=== PATIENT | male | born 1975 | race Caucasian/White ===

== ENCOUNTER 2024-11-20 23:15 | Outpatient (CLI) | payer OTHER, SELFPAY | END 2024-11-20 23:16 | disposition home or self-care (01) | LOC: AMB 11-24 14:13 | PROVIDERS: Visit Provider Emergency Medicine | DX: S09.93XA Unspecified injury of face, initial encounter (principal); Y04.0XXA Assault by unarmed brawl or fight, initial encounter; Y92.511 Restaurant or cafe as the place of occurrence of the external cause | CPT/HCPCS: A0425; A0429 ==

== ENCOUNTER 2024-11-20 23:40 | Emergency (ER) | payer OTHER, SELFPAY ==
--- OUTSIDE RECORDS SUMMARY | 2024-11-20 23:42 | XMS_ITS | Encounter Summary ---
Author Organization [facility] Address [address] [place] [address] Care Team Providers Care Lard Tub Washer Name Role Phone Akira Dietz MD Primary Care Provider [phone] Encounter Details Date Type Department Care Team (Late st Contact Info) Description 02/11/2017 Correspondence [facility] Neurosurgery/Ortho Spine [address] [facility] [place] [address] Bharath Dumont MD FMLA Social History Tobacco Use Types Packs/Day Years Used Date Smoking Tobacco: Never Smokeless Tobacco: Never Sex and Gender Information Value Date Recorded Sex Assigned at Not on file Legal Sex Male 4:45 AM CDT Gender Identity Not on file Sexual Orientation Not on file documented as of this encounter Plan of Treatment Not on file documented as of this encounter Visit Diagnoses Not on filedocumented in this encounter Care Teams Lard Tub Washer Relationship Specialty Start Date End Date Akira Dietz MD [address] [place] [address] [place] [address] PCP - General Family Practice 02/01/17 documented as of this encounter
--- OUTSIDE RECORDS SUMMARY | 2024-11-20 23:42 | XMS_ITS | Clinical Summary ---
Author Organization [facility] Address [address] [place] [address] Care Team Providers Care Student Development Advisor Name Role Phone Akira Dietz Primary Care Provider [phone] Allergies Active Allergy Reactions Criticality Noted Date Comments Clindamycin Anaphylaxis High 05/24/2016 Medications No known medications Active Problems Problem Noted Date Diagnosed Date Hemothorax on left 05/24/2016 Social History Tobacco Use Types Packs/Day Years Used Date Smoking Tobacco: Never Smokeless Tobacco: Never Alcohol Use Standard Drinks/Week Comments Yes 0 (1 standard drink = 0.6 oz pur e alcohol) occasionally Sex and Gender Information Value Date Recorded Sex Assigned at Not on file Legal Sex Male 4:51 PM FOREST MANAGER Gender Identity Not on file Sexual Orientation Not on file Last Filed Vital Signs Vital Sign Reading Time Taken Comments Blood Pressure 123/79 02/01/2017 5:27 PM CDT Pulse 72 02/01/2017 5:00 PM CDT Temperature 36.8 C (98.3 F) 02/01/2017 5:00 PM CDT Respiratory Rate 16 02/01/2017 5:00 PM CDT Oxygen Saturation 97% 02/01/2017 6:00 PM CDT Inhaled Oxygen Concentration - - Weight 97.5 kg (215 lb) 02/01/2017 5:00 PM CDT Height 185.4 cm (6' 1) 02/01/2017 5:00 PM CDT Body Mass Index 28.37 02/01/2017 5:00 PM CDT Plan of Treatment Not on file Advance Directives For more information, please contact: [phone] * Full Code (Latest Code Status on File) Date Activated Date Inactivated Comments 05/25/2016 1:16 AM 05/30/2016 1:17 PM Care Teams Student Development Advisor Relationship Specialty Start Date End Date Akira Dietz PCP - General Family Practice 05/24/16
--- OUTSIDE RECORDS SUMMARY | 2024-11-20 23:42 | XMS_ITS | Encounter Summary ---
Author Organization [facility] Address [address], [place] [address] Care Team Providers Care Surface Water Manager Name Role Phone Akira Dietz MD Primary Care Provider [phone] Encounter Details Date Type Department Care Team (Latest Contact Info) Description 02/05/2017 Correspondence None No Primary/Referring, Phy MEDICAL FACTS Social History Tobacco Use Types Packs/Day Years [...] on filedocumented in this encounter Care Teams Surface Water Manager Relationship Specialty Start Date End Date Akira Dietz MD [address] [facility] [place] [address] PCP - General Family Practice 02/01/17 documented as of this encounter
--- OUTSIDE RECORDS SUMMARY | 2024-11-20 23:42 | XMS_ITS | Clinical Summary ---
Author Organization [facility] Address [address] [place] [address] Care Team Providers Care Distribution Clerk Name Role Phone Akira Dietz MD Primary Care Provider Allergies Active Allergy Reactions Criticality Noted Date Comments Clindamycin GI Upset,Throat Swelling/Closing,Anaphylaxis High 01/22/2015 Medications No known medications Active Problems Problem Noted Date Diagnosed Date Encounter for screening colonoscopy 12/25/2023 Hemothorax on left 06/06/2016 Fracture of multiple ribs of left side 7 Immunizations Immunization Administration Dates Next Due COVID-19 vaccine (Digital Caddies 30mcg/0.3mL) [place] NENA Wills 08/21/2020,07/31/2020 Influenza, IIV3 (Age >=3 years) 04/02/2016 Influenza, IIV4 02/03/2017 Tdap 12/15/2023,06/19/2011 Family History Medical History Relation Name Comments Good Health Daughter Heart attack Father Good Health Mother Cancer-colon Paternal Grandmother Diabetes type II Paternal Grandmother Good Health Son Relation Name Status Comments Daughter Alive Father Mother Alive Paternal Grandmother Son Alive Social History Tobacco Use Types Packs/Day Years Used Date Smoking Tobacco: Never Smokeless Tobacco: Never Tobacco Cessation:Counseling Given: Yes Alcohol Use Standard Drinks/Week Comments Yes 0 (1 standard drink = 0.6 oz pur e alcohol) rare PHQ-2 Answer Date Recorded PHQ-2 TOTAL SCORE 0 12/15/2023 Social Connections Answer Date Recorded Do you often feel lonely or isolated from those around you? 0 01/25/2024 Financial Resource Strain Answer Date R ecorded Difficulty of Paying Living Expenses 3 01/25/2024 Difficulty of Paying Living Expenses Not on file 01/25/2024 Food Insecurity Answer Date Recorded Do you worry your food will run out before you are able to buy more? 1 01/25/2024 Transportation Needs Answer Date Record ed Does lack of transportation keep you from medica l appointments? 1 01/25/2024 Does lack of transportation keep you from work, meetings or getting things that you need? 1 01/25/2024 Housing Stability Answer Date Recorded What is your housing situation today? 1 01/25/2024 Utilities Answer Date Recorded Do you have trouble paying f or utilities (for example, heat, electricity, water, phone)? 1 01/25/2024 Sex and Gender Information Value Date Recorded Sex Assigned at Not on file Legal Sex Male 5:23 AM DIRECT MAIL MARKETER Gender Identity Not on file Sexual Orientation Not on file Obstetrics History Last Filed Vital Signs Vital Sign Reading Time Taken Comments Blood Pressure 102/68 01/25/2024 2:35 PM CDT Pulse 68 01/25/2024 2:35 PM CDT Temperature 36.8 C (98.3 F) 12/25/2023 8:39 AM CDT Respiratory Rate 16 12/25/2023 10:00 AM CDT Oxygen Saturation 95% 12/25/2023 10:00 AM CDT Inhaled Oxygen Concentration - - Weight 98.4 kg (217 lb) 01/25/2024 2:35 PM CDT Height 180.3 cm (5' 11) 01/25/2024 2:35 PM CDT Body Mass Index 30.27 01/25/2024 2:35 PM CDT Plan of Treatment Health Maintenance Due Date Last Done Comments HIV for age 15-65 1990 Hepatitis B series for 19+ (1 of 3 - 19+ 3-dose series) 1994 COVID-19 vaccine series (2023- season) 2023 08/21/2020, 07/31/2020 Depression screening for age 12+ 12/16/2024 12/17/2023, 12/15/2023, 12/15/2023 Influenza Vaccine (#1) 2024 02/03/2017, 2015 BMI (ht and wt on same day) for age 18+ 01/24/2025 01/25/2024, 12/15/2023, 05/15/2021, Additional history exists Lipids for age 45-75 12/14/2028 12/15/2023 Tetanus booster 12/14/2033 12/15/2023, 03/0 04/2011 (Completed outside of [facility]), 06/19/2011 Colonoscopy through age 75 12/24/2033 12/25/2023 Hepatitis C screening for age 18-79 Completed 12/15/2023 Pneumococcal series for age 6-49 Aged Out No longer eligible based on patient's age to complete this topic Procedures Procedure Name Priority Date/Time Associated Diagnosis Comments COLONOSCOPY 12/25/2023 9:00 AM CDT ANTI HCV Routine 12/15/2023 2:42 PM CDT Need for hepatitis C screening test LIPID PANEL W REFLEX MEASURED LDL Routine 12/15/2023 2:42 PM CDT Well adult exam from Last 3 Months or Most Recently Relevant to Health Maintenance Results * COLONOSCOPY (12/25/2023 9:00 AM CDT) 12/25/2023 9:00 AM CDT Narrative Transcriptions Federica Howell DO - 12/25/2023 9:51 AM CDT Patient Name: Mik Lindo Procedure Date: 12/25/2023 Gender: Male Date of : 1975 Admit Type: Ambulatory Procedure: Colonoscopy Proceduralist: Federica Howell MD Referring MD: Akira Dietz MD Indications/Pre-Op Diagnosis: Screening for colorectal malignantneoplasm Medications: Monitored Anesthesia Care Procedure Description: The patient had risks, benefits and alternatives explained to andgave informed consent. The patient had a stable cardiopulmonary status and judged an adequate candidate for conscious sedation. The endoscope [id number] was passed through the anus andadvanced to the terminal ileum, with identification of the appendiceal orifice and IC valve. The colonoscopy was performed without difficulty. The patient tolerated the procedure well. The quality of the bowel preparation was excellent. The terminal ileum, ileocecal valve, appendiceal orifice, and rectum were photographed. Complications: No immediate complications. Estimated Blood Loss & Specimen: Estimated blood loss: none. Specimen collected - None Findings: The perianal and digital rectal examinations were normal. Pertinent negatives include normal sphincter tone, no palpable rectal lesions, normal prostate (size, shape, and consistency) and normal stool Hemoccult. The colon (entire examined portion) appeared normal. The exam was otherwise without abnormality on direct and retroflexion views. Impressions/Post-Op Diagnosis: - The entire examined colon is normal. - The examination was otherwise normal on direct and retroflexionviews. - No specimens collected. Recommendation: - Patient has a contact number available for emergencies. The signsand symptoms of potential delayed complications were discussed with the patient. Return to normal activities tomorrow. Written discharge instructions were provided to the patient. - Discharge patient to home (ambulatory). - Resume previous diet. - Continue present medications. - Repeat colonoscopy in 10 years for screening purposes. Federica Howell MD 12/25/2023 9:51:22 AM This report has been signed electronically. Note Initiated On: 12/25/2023 9:00 AM us Federica Howell DO PROCEDURE ORD Final Res ult * (ABNORMAL) LIPID PANEL W REFLEX MEASURED LDL (12/15/2023 2:42 PM CDT) CHOLESTEROL,TOTAL 209(H) 100 - 199 mg/dL 12/15/2023 3:33 PM CDT [facility] Comment: Cholesterol, Total Reference Ranges Desirable <200 mg/dL Borderline 200-239 mg/dL High >=240 mg/dL TRIGLYCERIDES 155(H) <150 mg/dL 12/15/2023 3:33 PM CDT [facility] HDL CHOLESTEROL 70 >40 mg/dL 3:33 PM CDT [facility] NON-HDL CHOLESTEROL 139 <145 mg/dl 12/15/2023 3:33 PM CDT [facility] CHOL/HDL RATIO 2.99 <4.50 12/15/2023 3:33 PM CDT [facility] LDL CHOLESTEROL 108 <=130 mg/dL 12/15/2023 3:33 PM CDT [facility] VLDL CHOLESTEROL 31(H) <=30 mg/dL 12/15/2023 3:33 PM CDT [facility] PROVIDER ORDERED STATUS RANDOM 12/15/2023 3:33 PM CDT [facility] Blood BLOOD SPECIMEN / Unknown Venipuncture / Unknown 12/15/2023 2:42 PM CDT 12/15/2023 2:42 PM CDT Akira Dietz MD CHEMISTRY Final R esult [facility] [address] [place] [address] * ANTI HCV (12/15/2023 2:42 PM CDT) HEPATITIS C ANTIBODY Non-Reacti ve Non-React juliette 12/16/2023 2:28 PM CDT [facility] Comment:Please note, per www .CDC.gov: If a patient is known to be at high risk of HCV infection, or is symptomatic, and the physician's suspicion of HCV infection is high, HCV RNA testing is often employed and is of diagnostic value, even after an initial negative anti-HCV test result. Blood BLOOD SPECIMEN / Unknown Venipuncture / Unknown 12/15/2023 2:42 PM CDT 12/15/2023 2:42 PM CDT us Akira Dietz MD SEND OUTS Final R esult [facility] [address] [place] [address], [place] from Last 3 Months or Most Recently Relevant to Health Maintenance Insurance [facility] Advance Directives * Full Code (Latest Code Status on File) Date Activated Date Inactivated Comments 12/25/2023 8:36 AM 12/25/2023 12:14 PM Question Answer Comments Code Status Discussion: Discussed Care Teams Distribution Clerk Relationship Specialty Start Date End Date Akira Dietz MD PCP - General 03/13/08
--- OUTSIDE RECORDS SUMMARY | 2024-11-20 23:42 | XMS_ITS | Encounter Summary ---
Author Organization [facility] Address [address] [address] Care Team Providers Care Asphalt Roller Person Name Role Phone Akira Dietz MD Primary Care Provider [phone] Encounter Details Date Type Department Care Team (Late st Contact Info) Description 02/02/2017 Correspondence [facility] Radiology [address] [place] [address] Radiology, Provider MRI SAFETY SHEET AND COMPATIBILITY FORM Social History Tobacco Use Types Packs/Day Years [...] on filedocumented in this encounter Care Teams Asphalt Roller Person Relationship Specialty Start Date End Date Akira Dietz MD [address] [facility] [place] [address] PCP - General Family Practice 02/01/17 documented as of this encounter
--- OUTSIDE RECORDS SUMMARY | 2024-11-20 23:42 | XMS_ITS | Encounter Summary ---
Author Organization [facility] Address [address], [place] [address] Care Team Providers Care City Solicitor Name Role Phone Akira Dietz MD Primary Care Provider [phone] Encounter Details Date Type Department Care Team (Late st Contact Info) Description 02/01/2017 Correspondence [facility] Radiology [address] [place] [address] Radiology, Provider MRI SAFETY SHEET AND COMPATIBILITY FORM Social History Tobacco Use Types Packs/Day Years Used Date Smoking Tobacco: Never Assessed Sex and Gender Information Value Date Recorded Sex Assigned at Not on file Legal Sex Male 4:45 AM CDT Gender Identity Not on file Sexual Orientation Not on file documented as of this encounter Plan of Treatment Not on file documented as of this encounter Visit Diagnoses Not on filedocumented in this encounter Care Teams City Solicitor Relationship Specialty Start Date End Date Akira Dietz MD [address] [facility] [place] [address] PCP - General Family Practice 02/01/17 documented as of this encounter
--- OUTSIDE RECORDS SUMMARY | 2024-11-20 23:42 | XMS_ITS | Encounter Summary ---
[facility] Address [address] [address] Care Team Providers Care Van Driver Helper Name Role Phone Akira Dietz MD Primary Care Provider Encounter Details Date Type Department Care Team (Late st Contact Info) Description 02/18/2017 Correspondence External to External, [place] [address] PREFERRED ONE Social History Tobacco Use Types Packs/Day Years [...] on filedocumented in this encounter Care Teams Van Driver Helper Relationship Specialty Start Date End Date Akira Dietz MD [address] [facility] [place] [address] PCP - General Family Practice 02/01/17 documented as of this encounter
--- OUTSIDE RECORDS SUMMARY | 2024-11-20 23:43 | XMS_ITS | Encounter Summary ---
Author Organization [facility] Address [address], [place] [address] Care Team Providers Care Director Maternal Child Name Role Phone Akira Dietz MD Primary Care Provider [phone] Encounter Details Date Type Department Care Team (Late st Contact Info) Description 04/02/2017 Correspondence [facility] Neurosurgery/Ortho Spine [address] [facility]. [place], [place] [id number] Jaret Guerrero PA-C [address] [place] [address] WORKABILITY REPORT Social History Tobacco Use Types Packs/Day Years Used Date Smoking Tobacco: Never Smokeless Tobacco: Never Alcohol Use Standard Drinks/Week Comments No 0 (1 standard drink = 0.6 oz pur e alcohol) Sex and Gender Information Value Date Recorded Sex Assigned at Not on file Legal Sex Male 4:45 AM CDT Gender Identity Not on file Sexual Orientation Not on file documented as of this encounter Plan of Treatment Not on file documented as of this encounter Visit Diagnoses Not on filedocumented in this encounter Care Teams Director Maternal Child Relationship Specialty Start Date End Date Akira Dietz MD [address] [facility] [place] [address] PCP - General Family Practice 02/01/17 documented as of this encounter
--- OUTSIDE RECORDS SUMMARY | 2024-11-20 23:43 | XMS_ITS | Clinical Summary ---
Author Organization [facility] Address [address], [place] [address] Care Team Providers Care Taxi Driver Name Role Phone Akira Dietz MD Primary Care Provider Source Comments You are receiving this document as you are listed as the primary care provider,follow-up provider, or the patient has been referred to you for consultation.This is in compliance with the Medicare and[facility] EHR Incentive Program,which states Providers who transition their patient to another setting of careor provider of care or refers their patient to another provider of care shouldprovide summary care record for each transition of care or referral. Bluepay Allergies Active Allergy Reactions Criticality Noted Date Comments Clindamycin Anaphylaxis High 02/01/2017 Medications calcium carbonate-vitam in D (OS-MICHAEL 500 WITH D) 500-200 MG-UNIT per tablet Take 1 Tab by mouth two times a day with meals. 100 Tab 02/04/20 17 Active Additional Information Patient not taking.Reported on 08/27/2017 cholecalciferol (VITAMIND3) 400 UNITS tabletIndicatio ns:poor bone quality Take 2.5 Tabs by mouth daily. Indications: poor bone quality 125 Tab 02/05/20 17 Active Additional Information Patient not taking.Reported on 08/27/2017 acetaminophen (TYLENOL) 500 MG tablet Take 500-1,000 mg by mouth every 4 hours as needed for Pain. Maximum acetaminophen dose is 4000 mg in 24 hours Active gabapentin (NEURONTIN) 300 MG capsuleIndicati ons:Fracture of pedicle of C5 vertebra (HRC),Open displaced fracture of sixth cervical vertebra, unspecified fracture morphology, sequela Take 1 Cap by mouth three times a day. 90 Cap 2 02/17/20 17 Active Additional Information Patient not taking.Reported on 04/02/2017 methocarbamol (ROBAXIN) 500 MG tabletIndicatio ns:Musculoskele clarence Pain Take 1 Tab by mouth 4 times daily as needed. Indications: Musculoskeletal Pain 60 Tab 02/26/20 17 Active Additional Information Patient not taking.Reported on 04/02/2017 oxyCODONE (ROXICODONE) 5 MG immediate release tabletIndicatio ns:Fracture of pedicle of C5 vertebra (HRC),Open displaced fracture of sixth cervical vertebra, unspecified fracture morphology, sequela Take 1-2 Tabs by mouth every 4 hours as needed for Pain. 120 Tab 02/26/20 17 Active Additional Information Patient not taking.Reported on 04/02/2017 polyethylene glycol (MIRALAX) packetIndicatio ns:Constipation Take 1 Packet by mouth daily. Indications: Constipation 21 Each 1 02/26/20 17 Active Additional Information Patient not taking.Reported on 04/02/2017 sennosides-docu sate sodium (SENNA-S,SENNA PLUS) 8.6-50 MG per tablet Take 1 Tab by mouth two times daily as needed for Constipation. 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 Fracture of pedicle of C5 vertebra 02/18/2017 Overview (02/18/2017): Added automatically from request for surgery [id number] Open displaced fracture of sixth cervical verteb ra 02/18/2017 Overview (02/18/2017): Added automatically from request for surgery [id number] Immunizations Immunization Administration Dates Next Due Influenza IIV4 (Quadrivalent) 0.5mL (47600) 01/18 Social History Tobacco Use Types Packs/Day Years [...] Sign Reading Time Taken Comments Blood Pressure 131/81 08/27/2017 12:08 PM CDT Pulse 68 08/27/2017 12:08 PM CDT Temperature 36.5 C (97.7 F) 08/27/2017 12:08 PM CDT Respiratory Rate 16 08/27/2017 12:08 PM CDT Oxygen Saturation 96% 02/25/2017 6:21 AM FISCAL CLERK Inhaled Oxygen Concentration - - Weight 99.8 kg (220 lb) 08/27/2017 12:08 PM CDT Height 185.4 cm (6' 1) 08/27/2017 12:08 PM CDT Body Mass Index 29.03 08/27/2017 12:08 PM CDT Plan of Treatment Health Maintenance Due Date Last Done Comments Colon Cancer Screening Plan Due 1975 Hep C Screening (Preventive Services) 1975 IPV (Polio) Vaccine (2 of 3 - 4-dose series) 08/02/1980 07/05/1980 HIV Screening (Preventive Services) 1991 Adult Preventive Visit 1993 HepB Vaccine (1) 1994 Cholesterol 2010 DTaP/Tdap/Td Vaccine (4 - Tdap) 07/12/2021 07/13/2011, 06/19/2011, 07/05/1980 COVID-19 Vaccine (3 - season) 2023 08/21/2020, 07/31/2020 Influenza Vaccine (#1) 2024 7, 04/02/2016, 02/10/2013, Additional history exists Zoster/Shingles Vaccine (1 of 2) 2025 HepA Vaccine Aged Out No longer eligi ble based on patient's age to complete this topic Hib Vaccine Aged Out No longer eligi ble based on patient's age to complete this topic MCV4 Vaccine Aged Out No longer eligi ble based on patient's age to complete this topic Meningococcal B Vaccine Aged Out No l onger eligible based on patient's age to complete this topic Pneumococcal Vaccine Aged Out No long er eligible based on patient's age to complete this topic Medical Devices Implanted Type Area Office Lead Device Identifier Shelf Expiration Date Model / Serial / Lot Bone Putty Ifactor 1.0cc - [id number] Implanted:Qty : 1 on 02/24/2017 by Bharath Dumont MD at [facility] DEVICE N/A: SPINE CERVICAL ANTERIOR [employer] 09/18/2019 [id number] / / [id number] Spcr Cervical [id number] - [id number] Implanted:Qty : 1 on 02/24/2017 by Bharath Dumont MD at [facility] DEVICE N/A: SPINE CERVICAL ANTERIOR K2M 02/06/2021 [id number] / / [id number] Spcr Cervical [id number] - [id number] Implanted:Qty : 1 on 02/24/2017 by Bharath Dumont MD at [facility] DEVICE N/A: SPINE CERVICAL ANTERIOR K2M 12/26/2021 [id number] / / [id number] Scr Fa 4.0x18 - [id number] Implanted:Qty : 3 on 02/24/2017 by Bharath Dumont MD at [facility] DEVICE N/A: SPINE CERVICAL ANTERIOR [employer] [id number] / N/A / Plt 1-Lvl 22mm - [id number] Implanted:Qty : 1 on 02/24/2017 by Bharath Dumont MD at [facility] DEVICE N/A: SPINE CERVICAL ANTERIOR [employer] 31-1-22 / N/A / Scr Fa St 4.35x16 - [id number] Implanted:Qty : 1 on 02/24/2017 by Bharath Dumont MD at [facility] DEVICE N/A: SPINE CERVICAL ANTERIOR [employer] [id number] / N/A / Advance Directives * Full Code (Latest Code Status on File) Date Activated Date Inactivated Comments 02/24/2017 6:48 PM 02/25/2017 1:10 PM * Full Code Date Activated Date Inactivated Comments 02/24/2017 10:14 AM 02/24/2017 6:48 PM * Full Code Date Activated Date Inactivated Comments 02/02/2017 12:26 AM 02/03/2017 8:35 PM Care Teams Taxi Driver Relationship Specialty Start Date End Date Akira Dietz MD [address] [place] [address] [place] [address] PCP - General Family Practice 02/01/17
--- OUTSIDE RECORDS SUMMARY | 2024-11-20 23:43 | XMS_ITS | Encounter Summary ---
Author Organization [facility] Address [address], [place] [address] Care Team Providers Care Relocation Counselor Name Role Phone Akira Dietz MD Primary Care Provider [phone] Encounter Details Date Type Department Care Team (Late st Contact Info) Description 02/23/2017 Consent for Procedure/Treatme nt [facility] Department INFORMED CONSENT RECORD Social History Tobacco Use Types Packs/Day Years [...] on filedocumented in this encounter Care Teams Relocation Counselor Relationship Specialty Start Date End Date Akira Dietz MD [address] [facility] [place] [address] PCP - General Family Practice 02/01/17 documented as of this encounter
[2024-11-20 23:54] VITALS: BP 149/104; PULSE 89; RESP 18; TEMP 36.7; O2SAT 99; BMI 33.9
--- OUTSIDE RECORDS SUMMARY | 2024-11-21 01:20 | XMS_ITS | Clinical Summary ---
Author Organization [facility] Address [address] [place] [address] Care Team Providers Care Sleeping Room Cleaner Name Role Phone Akira Dietz MD Primary Care Provider Allergies Active Allergy Reactions Criticality Noted Date Comments Clindamycin GI Upset,Throat Swelling/Closing,Anaphylaxis High 01/22/2015 Medications No known medications Active Problems Problem Noted Date Diagnosed Date Encounter for screening colonoscopy 12/25/2023 Hemothorax on left 06/06/2016 Fracture of multiple ribs of left side 7 Immunizations Immunization Administration Dates Next Due COVID-19 vaccine ([employer] 30mcg/0.3mL) [place] NENA Wills 08/21/2020,07/31/2020 Influenza, IIV3 [...] on file 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 The endoscope [id number] was passed through the anus andadvanced to [...] - 199 mg/dL 12/15/2023 3:33 PM CDT [facility] Comment: Cholesterol, Total Reference Ranges Desirable <200 mg/dL Borderline 200-239 mg/dL High >=240 mg/dL TRIGLYCERIDES 155(H) <150 mg/dL 12/15/2023 3:33 PM CDT [facility] HDL CHOLESTEROL 70 >40 mg/dL 3:33 PM CDT [facility] NON-HDL CHOLESTEROL 139 <145 mg/dl 12/15/2023 3:33 PM CDT [facility] CHOL/HDL RATIO 2.99 <4.50 12/15/2023 3:33 PM CDT [facility] LDL CHOLESTEROL 108 <=130 mg/dL 12/15/2023 3:33 PM CDT [facility] VLDL CHOLESTEROL 31(H) <=30 mg/dL 12/15/2023 3:33 PM CDT [facility] PROVIDER ORDERED STATUS RANDOM 12/15/2023 3:33 PM CDT [facility] Blood BLOOD SPECIMEN / Unknown Venipuncture / Unknown 12/15/2023 2:42 PM CDT 12/15/2023 2:42 PM CDT Akira Dietz MD CHEMISTRY Final R esult [facility] [address] [place] [address] * ANTI HCV (12/15/2023 2:42 PM CDT) HEPATITIS C ANTIBODY Non-Reacti ve Non-React juliette 12/16/2023 2:28 PM CDT [facility] Comment:Please note, per www [...] Dietz MD SEND OUTS Final R esult [facility] [address] [place] [address], [place] from Last 3 Months or Most Recently Relevant to Health Maintenance Insurance [facility] [employer] [facility] Advance Directives * Full Code (Latest Code Status on File) Date Activated Date Inactivated Comments 12/25/2023 8:36 AM 12/25/2023 12:14 PM Question Answer Comments Code Status Discussion: Discussed Care Teams Sleeping Room Cleaner Relationship Specialty Start Date End Date Akira Dietz MD PCP - General 03/13/08
--- OUTSIDE RECORDS SUMMARY | 2024-11-21 01:20 | XMS_ITS | Encounter Summary ---
Author Organization [facility] Address [address] [address] Care Team Providers Care De Icer Installer Name Role Phone Akira Dietz MD Primary Care Provider [phone] Encounter Details Date Type Department Care Team (Late st Contact Info) Description 02/02/2017 Correspondence [facility] Radiology [address] [place] [address] Radiology, Provider MRI SAFETY SHEET AND COMPATIBILITY [...] on filedocumented in this encounter Care Teams De Icer Installer Relationship Specialty Start Date End Date Akira Dietz MD [address] [facility] [place] [address] PCP - General Family Practice 02/01/17 documented as of this encounter
--- OUTSIDE RECORDS SUMMARY | 2024-11-21 01:20 | XMS_ITS | Clinical Summary ---
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
--- OUTSIDE RECORDS SUMMARY | 2024-11-21 01:20 | XMS_ITS | Encounter Summary ---
Author Organization [facility] Address [address], [place] [address] Care Team Providers Care Mold Maker Plastic Molds Name Role Phone Akira Dietz MD Primary [...] on filedocumented in this encounter Care Teams Mold Maker Plastic Molds Relationship Specialty Start Date End Date Akira Dietz MD [address] [place], [place] [address] [address] PCP - General Family Practice 02/01/17 documented as of this encounter
--- OUTSIDE RECORDS SUMMARY | 2024-11-21 01:20 | XMS_ITS | Encounter Summary ---
Author Organization [facility] Address [address] [place] [address] Care Team Providers Care Time Motion Analyst Name Role Phone Akira Dietz MD Primary Care Provider Encounter Details Date Type Department Care Team (Late st Contact Info) Description 02/11/2017 Correspondence [facility] Neurosurgery/Ortho Spine [address] [facility] [place] [address] Bharath Dumont MD FMLA Social History Tobacco [...] on filedocumented in this encounter Care Teams Time Motion Analyst Relationship Specialty Start Date End Date Akira Dietz MD [address] [place] [address] [place] [address] PCP - General Family Practice 02/01/17 documented as of this encounter
--- OUTSIDE RECORDS SUMMARY | 2024-11-21 01:20 | XMS_ITS | Clinical Summary ---
Author Organization [facility] Address [address], [place] [address] Care Team Providers Care Service Operations Manager Name Role Phone Akira Dietz MD Primary Care Provider [phone] Source Comments You are receiving this document as you are listed as the primary care provider,follow-up provider, or the patient has been referred to you for consultation.This is in compliance with the Medicare and[facility] EHR Incentive Program,which states Providers who transition their patient to another setting of careor provider of care or refers their patient to another provider of care shouldprovide summary care record for each transition of care or referral. [facility] Allergies Active Allergy Reactions Criticality Noted Date [...] (02/18/2017): Added automatically from request for surgery [id number] Open displaced fracture of sixth cervical verteb ra 02/18/2017 Overview (02/18/2017): Added automatically from request for surgery [id number] Immunizations Immunization Administration Dates Next Due Influenza IIV4 (Quadrivalent) 0.5mL (83287) 01/18 Social History Tobacco Use Types Packs/Day [...] CDT Oxygen Saturation 96% 02/25/2017 6:21 AM SOLE BUFFER Inhaled Oxygen Concentration - - Weight 99.8 [...] this topic Medical Devices Implanted Type Area Welder/Fitter Device Identifier Shelf Expiration Date Model / Serial / Lot Bone Putty Ifactor 1.0cc - [id number] Implanted:Qty : 1 on 02/24/2017 by Bharath Dumont MD at [facility] DEVICE N/A: SPINE CERVICAL ANTERIOR [employer] 09/18/2019 [id number] / / [id number] Spcr Cervical [id number] - [id number] Implanted:Qty : 1 on 02/24/2017 by Bharath Dumont MD at [facility] DEVICE N/A: SPINE CERVICAL ANTERIOR [employer] 02/06/2021 [id number] / / [id number] Spcr Cervical [id number] - [id number] Implanted:Qty : 1 on 02/24/2017 by Bharath Dumont MD at [facility] DEVICE N/A: SPINE CERVICAL ANTERIOR [employer] 12/26/2021 [id number] / / [id number] Scr Fa 4.0x18 - [id number] Implanted:Qty : 3 on 02/24/2017 by Bharath Dumont MD at [facility] DEVICE N/A: SPINE CERVICAL ANTERIOR [employer] [id number] / N/A / Plt 1-Lvl 22mm - [id number] Implanted:Qty : 1 on 02/24/2017 by Bharath Dumont MD at [facility] DEVICE N/A: SPINE CERVICAL ANTERIOR [employer] 31-1-22 / N/A / Scr Fa St 4.35x16 - [id number] Implanted:Qty : 1 on 02/24/2017 by Bharath Dumont MD at [facility] DEVICE N/A: SPINE CERVICAL ANTERIOR [employer] [id number] / N/A / Advance Directives * Full Code (Latest Code Status on File) Date Activated Date Inactivated Comments 02/24/2017 6:48 PM 02/25/2017 1:10 PM * Full Code Date Activated Date Inactivated Comments 02/24/2017 10:14 AM 02/24/2017 6:48 PM * Full Code Date Activated Date Inactivated Comments 02/02/2017 12:26 AM 02/03/2017 8:35 PM Care Teams Service Operations Manager Relationship Specialty Start Date End Date Akira Ditez MD [address] [place] [address] [place] [address] PCP - General Family Practice 02/01/17
--- OUTSIDE RECORDS SUMMARY | 2024-11-21 01:20 | XMS_ITS | Encounter Summary ---
Author Organization [facility] Address [address] [address] Care Team Providers Care Molecular Spectroscopist Name Role Phone Akira Dietz MD Primary Care Provider [phone] Encounter Details Date Type Department Care Team (Late st Contact Info) Description 02/18/2017 Correspondence External to External, [place] [address] PREFERRED ONE Social History Tobacco Use Types [...] on filedocumented in this encounter Care Teams Molecular Spectroscopist Relationship Specialty Start Date End Date Akira Dietz MD [address] [facility] [place] [address] PCP - General Family Practice 02/01/17 documented as of this encounter
--- OUTSIDE RECORDS SUMMARY | 2024-11-21 01:20 | XMS_ITS | Encounter Summary ---
Author Organization [facility] Address [address] [address] Care Team Providers Care Brim Pouncer Name Role Phone Akira Dietz MD Primary Care Provider [phone] Encounter Details Date Type Department Care Team (Late st Contact Info) Description 04/02/2017 Correspondence [facility] Neurosurgery/Ortho Spine [address] [facility] [place], [place] [id number] Jaret Guerrero PA-C [address] [place] [address] WORKABILITY REPORT Social History Tobacco Use Types [...] on filedocumented in this encounter Care Teams Brim Pouncer Relationship Specialty Start Date End Date Akira Dietz MD [address] [facility] [place] [address] PCP - General Family Practice 02/01/17 documented as of this encounter
--- OUTSIDE RECORDS SUMMARY | 2024-11-21 01:20 | XMS_ITS | Encounter Summary ---
Author Organization [facility] Address [address], [place] [address] Care Team Providers Care Gifted Teacher Name Role Phone Akira Dietz MD Primary Care Provider [phone] Encounter Details Date Type Department Care Team (Late st Contact Info) Description 02/01/2017 Correspondence [facility] Radiology [address] [place] [address] Radiology, Provider MRI SAFETY SHEET AND COMPATIBILITY [...] on filedocumented in this encounter Care Teams Gifted Teacher Relationship Specialty Start Date End Date Akira Dietz MD [address] [facility] [address] PCP - General Family Practice 02/01/17 documented as of this encounter
--- OUTSIDE RECORDS SUMMARY | 2024-11-21 01:20 | XMS_ITS | Encounter Summary ---
Author Organization [facility] Address [address], [place] [address] Care Team Providers Care Field Applications Specialist Name Role Phone Akira Dietz MD Primary Care Provider [phone] Encounter Details Date Type Department Care Team (Late st Contact Info) Description 02/23/2017 Consent for Procedure/Treatme nt [facility] Department INFORMED CONSENT RECORD Social History Tobacco [...] on filedocumented in this encounter Care Teams Field Applications Specialist Relationship Specialty Start Date End Date Akira Dietz MD [address] [place], [place] [address] [address] PCP - General Family Practice 02/01/17 documented as of this encounter
== END 2024-11-21 01:20 | disposition left against medical advice (07) ==
LOC: ED 11-21 01:17
PROVIDERS: Emergency Provider Family Medicine
DX: Z53.21 Procedure and treatment not carried out due to patient leaving prior to being seen by health care provider (principal)